=== PATIENT | female | born 1985 | race Caucasian/White ===

== ENCOUNTER 2017-04-13 05:24 | Day surgery (SDC) | payer BC ==
[2017-04-10 15:11] VITALS: BMI 25.7
[~2017-04-13] VITALS: Ht 162.6 cm; Wt 66.3 kg
[2017-04-13] VITALS (12 sets, daily range): BP systolic 82–109; BP diastolic 50–65; PULSE 54–71; RESP 11–26; Ht 162.6 cm; Wt 66.3 kg
[2017-04-13] MEDS ORDERED: LACTATED RINGER'S 1,000 ML IV SCH (06:00)
[2017-04-13] MEDS ORDERED: CEFAZOLIN 2 GM/50 ML (PMX) 50 ML IVPB SCH (06:00)
[2017-04-13] MEDS ORDERED: BUPIVACAINE 0.25%/EPI (SDV) 30 ML INJ ONE (06:38)
--- NOTE | 2017-04-13 07:30 | HP ---
Date/Time of Note Date/Time of Note DATE: 04/13/17 TIME: 07:28 Assessment/Plan VTE Prophylaxis VTE Prophylaxis Intervention: ambulation, SCD's Lines/Catheters IV Catheter Type (from Nrsg): Peripheral IV HPI/ROS Admit Date/Time Admit Date/Time patient is requesting permanent sterilization. Risks and benefits and indications and alternatives discussed patients. risks including but not limited to infection, bleeding, damage to other organs such as intestines or bladder, blood transfusion and possibilty of failure of procedure discussed with patient. I also explained to her this procedures is permanent and not reversible. other reversible contraceptive methods also discussed with patient. patent also told that our plan is Laparoscopic BTL, but some times the surgery may be converted to Exploratory Laparotomy. Informed consent obtained Allergies: NKDA Medicatins: none ROS: Significant as above Review of Systems: Constitutional: Denies nausea, vomiting, Fever, Chills, weight loss Eyes: denies pain, discharge or redness Nose: denies pain or bleeding Respiratory: denies SOB, cough or wheezing Cardiovascular: denies chest pain, palpitations or lightheadedness Gastrointestinal: Denies nausea, vomiting, blood in stool Genitourinary: Denies hematuria, dysuria, or flank pain Musculoskeletal: Denies joint pain or swelling Skin: Denies rash, erythema or laceration Neuro: Denies confusion, seizure, headache or diziness Endocrine: Denies excessive urination or drinking Past Medical History: none Past Surgical Historynone Physical Exam: Afebrile, VSS NAD A&O Heart: RRR Lung: CTA B Abdomen: Soft, Not tender Extremities: No edema Assessment: Patients desires permanent sterilization Plan: Laparoscopic BTL, Possible Exploratory Laparotomy. PMH/Family/Social Social History Smoking Status: Never smoker Exam/Review of Systems Vital Signs Vitals Vital Signs Date Time Temp Pulse Resp B/P Pulse Ox O2 Delivery O2 Flow Rate FiO2 04/13/17 05:46 98.0 71 18 109/65 99 Room Air Medications Medications Current Medications Cefazolin Sodium/ Dextrose 50 ml @ 100 mls/hr OC IVPB ; Start 04/13/17 at 06:00 ; Stop 04/13/17 at 19:00 Lactated Ringer's (Lr) 1,000 ml @ 125 mls/hr Q8H IV ; Start 04/13/17 at 06:00; Stop 04/13/17 at 19:00 CHARU BERGMAN MD Apr 13, 2017 07:30
[2017-04-13] MEDS ORDERED: LIDOCAINE 2% (SDV) 5 ML INJ ONE (07:38)
[2017-04-13] MEDS ORDERED: PROPOFOL 60 ML ONE (07:38)
[2017-04-13] MEDS ORDERED: ROCURONIUM 50 MG INJ ONE (07:38)
[2017-04-13] MEDS ORDERED: FENTAnyl 50 MCG/ML VIAL ONE ×2 (07:39→08:44)
[2017-04-13] MEDS ORDERED: KETOROLAC 30 MG INJ ONE (08:21)
[2017-04-13] MEDS ORDERED: PROPOFOL 20 ML ONE (08:22)
[2017-04-13] MEDS ORDERED: BUPIVACAINE 0.25%/EPI (SDV) 30 ML INJ INJ ONE (08:23)
--- NOTE | 2017-04-13 08:30 | OPR ---
Date/Time of Note Date/Time of Note DATE: 04/13/17 TIME: 08:28 Operative Report Free Text/Dictation DATE OF OPERATION: 04 13 2017 PREOPERATIVE DIAGNOSIS: Patient desires permanent sterilization. She declined Essure. She desires laparoscopic tubal fulguration. POSTOPERATIVE DIAGNOSIS: Patient desires permanent sterilization. She declined Essure. She desires laparoscopic tubal fulguration. OPERATION PERFORMED: Laparoscopic fulguration and transection of bilateral tubes. SURGEON: Melissa Juárez MD ESTIMATED BLOOD LOSS: Minimal. COMPLICATIONS: None. FINDINGS: Normal tubes, ovaries bilaterally. Normal uterus. CONSENT: Please see my preop H and P consent in the office for the consent process. DESCRIPTION OF PROCEDURE: She was taken to operating room and general anesthesia was induced. She was prepped and draped in the usual sterile fashion in dorsal lithotomy position. Surgical time-out was done. Anterior lip of the cervix was grasped using a single-tooth tenaculum, and a HUMI was inserted in normal fashion. The tenaculum was removed. There was no bleeding from the cervix. The patient already had a Box catheter as well. Gloves were changed. A 5 mm incision was developed inside the umbilicus. A blunt trocar was inserted in the normal fashion. Intraperitoneal position was confirmed using the laparoscope. Pneumoperitoneum was obtained. The patient was placed in Trendelenburg position. A second trocar was inserted under direct visualization of the laparoscope at the pubic hairline in the midline. A 5 cm mid ampullary region of the right tube was coagulated. Complete desiccation of the entire diameter of tube was visualized. The middle of the coagulated portion was cut. There was no bleeding. Same procedure was done on the contralateral side. All instruments removed under direct visualization of the laparoscope after pneumoperitoneum was released. There was no bleeding. Skin closed using 4-0 Monocryl. Then 10 mL 0.25% Marcaine with epinephrine was injected at the incision sites. HUMI was removed. There was no bleeding from the vagina. Patient tolerated the procedure well. Pt Condition Post Procedure: stable Disposition: PACU MELISSA JUÁREZ MD Apr 13, 2017 08:30
[2017-04-13] MEDS ORDERED: NEOSTIGMINE 3 MG/3 ML SYRINGE ONE (08:31)
[2017-04-13] MEDS ORDERED: GLYCOPYRROLATE 0.4 MG INJ ONE (08:31)
[2017-04-13] MEDS: FENTAnyl 50 MCG/ML VIAL IV PRN ×2 (08:51→08:57)
[2017-04-13] MEDS ORDERED: ONDANSETRON 4 MG INJ IV PRN (09:00)
[2017-04-13] MEDS ORDERED: DIPHENHYDRAMINE 50 MG INJ IV PRN (09:00)
[2017-04-13] MEDS ORDERED: MEPERIDINE 25 MG INJ IV PRN (09:00)
[2017-04-13] MEDS ORDERED: hydrALAzine 20 MG INJ IV PRN (09:00)
[2017-04-13] MEDS ORDERED: OXYCODONE/ACETAMINOPHEN (5/325) TAB PO PRN ×2 (09:00)
[2017-04-13] MEDS ORDERED: EPHEDrine SULFATE 50 MG/5 ML SYG IV PRN (09:00)
[2017-04-13] MEDS ORDERED: FENTAnyl 50 MCG/ML VIAL IV PRN ×2 (09:00)
[2017-04-13] MEDS ORDERED: LABETALOL HCL 20MG INJ IV PRN (09:00)
== END 2017-04-13 10:30 | disposition home or self-care (01) ==
LOC: SDS 05:24
PROVIDERS: ATTEND Specialist
DX: Z30.2 Encounter for sterilization (principal)
CPT/HCPCS: 58670; J1885; J2710; J3010; Z7512; Z7610